=== PATIENT | female | born 1970 | race Caucasian/White ===

== ENCOUNTER 2019-06-12 17:04 | Emergency (ER) | payer MEDICAID ==
[~2019-06-12] VITALS: Ht 165.1 cm; Wt 86.0 kg
[2019-06-12] MEDS ORDERED: TETANUS, DIPHTHERIA, PERTUSSIS VAC/PF 0.5ML (>7YR OLD) IM ONE (19:45)
[2019-06-12] MEDS ORDERED: BACITRACIN ZINC OINT UDPKT TOP ONE (19:45)
[2019-06-12 20:35] VITALS: BP 111/78
[2019-06-12] MEDS ORDERED: BACITRACIN 15GM TUBE TOP NR (20:45)
== END 2019-06-12 20:35 | disposition home or self-care (01) ==
LOC: ER 17:04
DX: S00-T88 Injury, poisoning and certain other consequences of external causes (principal); F17.200 Nicotine dependence, unspecified, uncomplicated; Z98.890 Other specified postprocedural states; X58.XXXA Exposure to other specified factors, initial encounter; Y93.89 Activity, other specified; Y92.89 Other specified places as the place of occurrence of the external cause; Y99.8 Other external cause status
CPT/HCPCS: 73130; 90471; 90715; 99283

== ENCOUNTER 2022-09-26 21:01 | Emergency (ER) | payer SELFPAY ==
[~2022-09-26] VITALS: Ht 167.6 cm; Wt 90.3 kg
[2022-09-26 23:34] LABS: BASOPHILS % 0.6 % (0.0-2.0); EOSINOPHILS % 3.9 % (0.0-5.0); HEMATOCRIT. 41.7 % (36.0-48.0); HEMOGLOBIN. 13.5 g/dL (12.0-16.0); LYMPHOCYTES % 36.1 % (20.0-50.0); MEAN CORPUSCULAR HEMOGLOBIN 26.7 pg (28.0-32.0); MEAN CORPUSCULAR VOLUME 82.5 fL (81.0-99.0); MEAN PLATELET VOLUME 7.2 fl (7.4-10.4); MONOCYTES % 5.3 % (2.0-8.0); NEUTROPHILS % 54.1 % (40.0-76.0); PLATELET 303 x1000/uL (130-400); RED BLOOD CELL COUNT 5.05 mill/uL (4.2-5.4); RED CELL DISTRIBUTION WIDTH 14.1 % (11.6-14.6)
[2022-09-26 23:42] LABS: CHLORIDE 106 mEq/L (98-107)
[2022-09-26 23:55] LABS: HCG SCREEN NEGATIVE
[2022-09-27 02:30] VITALS: BP 154/90
[2022-09-27] MEDS ORDERED: KETOROLAC 30MG/ML VIAL IM ONE (02:30)
[2022-09-27] MEDS ORDERED: IBUP-2029 MT (05:43)
[2022-09-27] MEDS ORDERED: CYCL5TAB MT (05:43)
[2022-09-27] MEDS ORDERED: LIDO1ADH23 TP (05:43)
== END 2022-09-27 05:50 | disposition home or self-care (01) ==
LOC: ER 21:06
DX: M54.50 Low back pain, unspecified (principal); M94.0 Chondrocostal junction syndrome [Tietze]; E78.00 Pure hypercholesterolemia, unspecified; Z88.0 Allergy status to penicillin
CPT/HCPCS: 36415; 71045; 74176; 80053; 81025; 83880; 84484; 84703; 85025; 93005; 96372; 99285; J1885